=== PATIENT | male | born 2000 | race Caucasian/White ===

== ENCOUNTER → 2020-06-26 09:32 | Outpatient (CLI) | payer MEDICAID, SELFPAY ==
[2020-06-28 07:14] LABS: SARS-COV-2 TOTAL ABS Reactive (Nonreactive)
== END ==
PROVIDERS: PCP Family Medicine; Referring Provider Otolaryngology; Visit Provider Otolaryngology
DX: U07.1 COVID-19 (principal)
CPT/HCPCS: 36415; 86769